=== PATIENT | female | born 1970 | race Caucasian/White ===

== ENCOUNTER 2016-10-04 09:04 | Outpatient (CLI) | payer BC, SELFPAY ==
[2016-10-04 12:26] LABS: #Basophils 0.1 thou/uL (0.0-0.2); #Eosinphils 0.3 thou/uL (0.0-0.7); #Monocytes 0.5 thou/uL (0.11-0.59); #Neutrophils 7.4 thou/uL (1.40-6.50); %Basophils 0.6 % (0.0-1.0); %Lymphocytes 19.8 % (21.0-51.0); %Monocytes 4.5 % (0.0-10.0); Hemoglobin 14.3 g/dL (12.0-16.0); Mean Corpuscular HGB CONC 31.5 g/dL (32.0-36.0); Mean Corpuscular Hemoglobin 26.4 pg (27.0-31.0); Mean Platelet Volume 6.8 fL (7.4-10.4); Platelet Count 283 thou/uL (130-400); RBC Distribution Width 12.4 % (11.5-14.5); Red Blood Cell (RBC) Count 5.42 mill/uL (4.20-5.40); White Blood Cell (WBC) Count 10.3 thou/uL (4.8-10.8)
[2016-10-04 12:33] LABS: Bilirubin Negative (Negative); Blood, Urine Negative (Negative); Clarity Clear (Clear); Glucose, Urine (Dipstick) Negative (Negative); Leukocyte Negative (Negative); Nitrite Negative (Negative); Protein, Urine (Dipstick) Trace mg/dL (Neg-Trace); Urobilinogen 0.2 mg/dL (0.2-1.0); pH, Urine 5.5 (5.0-9.0)
[2016-10-04 19:10] LABS: ALT (SGPT) 41 U/L (8-55); AST (SGOT) 32 U/L (5-34); Alkaline Phosphatase 71 U/L (40-150); Anion Gap 19 mmol/L (10-20); BUN (Urea Nitrogen) 11 mg/dL (7.0-18.7); Bilirubin, Total 0.4 mg/dL (0.2-1.2); Calc. Creatinine Clearance 0 mL/min (70-130); Calcium 9.3 mg/dL (7.8-10.44); Carbon Dioxide 23 mmol/L (22-29); Cardiac Risk 3.4 (Less than 4.5); Chloride 103 mmol/L (98-107); Cholesterol 191 mg/dL (< 200 Desired); Estimated GFR-MDRD 73; Globulin 3.1 g/dL (2.4-3.5); Glucose 106 mg/dL (70-105); HDL Cholesterol 56 mg/dL (>60 Neg Risk); LDL Cholesterol, Calculated 110 mg/dL; Potassium 4.1 mmol/L (3.5-5.1); Protein, Total 7.1 g/dL (6.0-8.3); Sodium 141 mmol/L (136-145); Triglycerides 123 mg/dL (Less than 150)
== END 2016-10-04 09:05 | disposition home or self-care (01) ==
LOC: NAVSJIPCSP 09:04
PROVIDERS: ATTEND Internal Medicine
DX: E78.5 Hyperlipidemia, unspecified (principal); I11.9 Hypertensive heart disease without heart failure
CPT/HCPCS: 36415; 80053; 80061; 81003; 85025

== ENCOUNTER 2017-01-19 09:44 | Outpatient (CLI) | payer BC ==
[2017-01-19 11:40] LABS: Cardiac Risk 3.1 (Less than 4.5)
== END 2017-01-19 09:45 | disposition home or self-care (01) ==
LOC: NAVSJIPCSP 09:44
PROVIDERS: ATTEND Internal Medicine
DX: E78.5 Hyperlipidemia, unspecified (principal); Z79.899 Other long term (current) drug therapy
CPT/HCPCS: 36415; 80061

== ENCOUNTER 2021-10-24 08:59 | Emergency (ER) | payer BC, SELFPAY ==
[2021-10-24] MEDS ORDERED: Ondansetron PF 4 MG/2 ML Vial ONE (09:19)
[2021-10-24 09:26] LABS: #Basophils 0.1 thou/uL (0.0-0.2); #Eosinphils 0.1 thou/uL (0.0-0.7); #Lymphocytes 1.2 thou/uL (1.20-3.40); #Monocytes 0.5 thou/uL (0.11-0.59); #Neutrophils 6.7 thou/uL (1.40-6.50); %Basophils 1.1 % (0.0-1.0); %Eosinophils 1.4 % (0.0-10.0); %Lymphocytes 13.5 % (21.0-51.0); %Monocytes 5.8 % (0.0-10.0); %Neutrophils 78.2 % (42.0-75.0); Hemoglobin 14.3 g/dL (12.0-16.0); Mean Corpuscular HGB CONC 30.1 g/dL (32.0-36.0); Mean Corpuscular Hemoglobin 26.2 pg (27.0-31.0); Mean Corpuscular Volume 87.1 fL (78.0-98.0); Mean Platelet Volume 7.6 fL (7.4-10.4); Platelet Count 280 thou/uL (130-400); RBC Distribution Width 13.2 % (11.5-14.5); Red Blood Cell (RBC) Count 5.44 mill/uL (4.20-5.40); White Blood Cell (WBC) Count 8.6 thou/uL (4.8-10.8)
[2021-10-24] MEDS ORDERED: Sodium Chloride 0.9% 1,000 ML ONE ×2 (09:43→10:34)
[2021-10-24 09:49] LABS: ALT (SGPT) 26 U/L (8-55); AST (SGOT) 23 U/L (5-34); Albumin 4.2 g/dL (3.5-5.0); Alkaline Phosphatase 73 U/L (40-110); Anion Gap 21 mmol/L (10-20); BUN (Urea Nitrogen) 12 mg/dL (9.8-20.1); Bilirubin, Total 0.5 mg/dL (0.2-1.2); Calc. Creatinine Clearance 0 mL/min (70-130); Calcium 9.8 mg/dL (7.8-10.44); Carbon Dioxide 20 mmol/L (22-29); Chloride 105 mmol/L (98-107); Globulin 3.8 g/dL (2.4-3.5); Glucose 114 mg/dL (70-105); Magnesium 1.8 mg/dL (1.6-2.6); Potassium 4.2 mmol/L (3.5-5.1); Sodium 142 mmol/L (136-145)
[2021-10-24 09:52] LABS: Bilirubin Negative (Negative); Blood, Urine Negative (Negative); Clarity Clear (Clear); Glucose, Urine (Dipstick) Negative (Negative); Ketone, Urine Negative (Negative); Leukocyte Negative (Negative); Nitrite Negative (Negative); Protein, Urine (Dipstick) Negative (Neg-Trace); Urobilinogen 0.2 mg/dL (Less than 2); pH, Urine 7.5 (5.0-9.0)
[2021-10-24] MEDS ORDERED: Ketorolac Tromethamine 30 MG/ML VIAL ONE (10:34)
[2021-10-24] MEDS ORDERED: predniSONE 20 MG TAB ONE (10:34)
[2021-10-24] MEDS ORDERED: Aspirin Chewable 81 MG TAB ONE (10:34)
[2021-10-24] MEDS ORDERED: Azithromycin 250 MG TAB ONE (10:34)
[2021-10-24 12:00] LABS: Troponin I Less than 0.010 ng/mL (< 0.028)
[2021-10-24 12:02] LABS: Lactic Acid 1.4 mmol/L (0.5-2.2)
[2021-10-24 20:22] LABS: SARS-CoV-2 PCR by NAA DETECTED (NotDetected)
== END 2021-10-24 12:26 | disposition home or self-care (01) ==
LOC: NAV ERS 08:59
DX: U07.1 COVID-19 (principal); J12.82 Pneumonia due to coronavirus disease 2019; J06.9 Acute upper respiratory infection, unspecified; J98.01 Acute bronchospasm; R07.81 Pleurodynia; I10 Essential (primary) hypertension; E78.5 Hyperlipidemia, unspecified; Z79.899 Other long term (current) drug therapy
CPT/HCPCS: 71045; 80053; 81003; 83605; 83735; 83880; 84484; 85025; 87081; 87430; 93005; 94640; 94760; 96361; 96374; 96375; J1885; J2405; J7050; J7512; J7620; U0003; U0005

== ENCOUNTER 2023-05-02 12:47 | Emergency (ER) | payer BC ==
[2023-05-02] MEDS ORDERED: Aspirin 325 MG TAB ONE (13:37)
[2023-05-02] MEDS ORDERED: Nitroglycerin 0.4 MG TAB 1 EACH ONE ×2 (13:37→17:41)
[2023-05-02 13:39] LABS: #Basophils 0.1 thou/uL (0.0-0.2); #Eosinphils 0.2 thou/uL (0.0-0.7); #Monocytes 0.5 thou/uL (0.11-0.59); #Neutrophils 5.8 thou/uL (1.40-6.50); %Basophils 1.1 % (0.0-1.0); %Eosinophils 1.9 % (0.0-10.0); %Lymphocytes 23.8 % (21.0-51.0); %Monocytes 5.9 % (0.0-10.0); %Neutrophils 67.3 % (42.0-75.0); Hematocrit 47.2 % (36.0-47.0); Hemoglobin 15.1 g/dL (12.0-16.0); Mean Corpuscular Hemoglobin 27.4 pg (27.0-31.0); Mean Corpuscular Volume 85.8 fl (78.0-98.0); Mean Platelet Volume 7.4 fL (7.4-10.4); Platelet Count 252 10x3/uL (130-400); RBC Distribution Width 12.3 % (11.5-14.5); White Blood Cell (WBC) Count 8.5 10x3/uL (4.8-10.8)
[2023-05-02 13:48] LABS: Troponin I Less than 0.010 ng/mL (< 0.028)
[2023-05-02 13:49] LABS: ALT (SGPT) 23 U/L (8-55); AST (SGOT) 21 U/L (5-34); Albumin 4.2 g/dL (3.5-5.0); Alkaline Phosphatase 68 U/L (40-110); Anion Gap 15 mmol/L (10-20); BUN (Urea Nitrogen) 12 mg/dL (9.8-20.1); Bilirubin, Total 0.5 mg/dL (0.2-1.2); Calc. Creatinine Clearance 0 mL/min (70-130); Calcium 9.2 mg/dL (7.8-10.44); Carbon Dioxide 20 mmol/L (22-29); Chloride 105 mmol/L (98-107); Estimated GFR 77; Globulin 3.4 g/dL (2.4-3.5); Glucose 94 mg/dL (70-105); Lipase 21 U/L (8-78); Magnesium 1.7 mg/dL (1.6-2.6); Protein, Total 7.6 g/dL (6.0-8.3); Sodium 136 mmol/L (136-145)
[2023-05-02 16:23] LABS: Troponin I 0.012 ng/mL (< 0.028)
== END 2023-05-02 17:26 | disposition home or self-care (01) ==
LOC: NAV ERS 12:47
DX: I16.0 Hypertensive urgency (principal); R07.9 Chest pain, unspecified; E78.5 Hyperlipidemia, unspecified; I10 Essential (primary) hypertension; Z79.899 Other long term (current) drug therapy
CPT/HCPCS: 36415; 71045; 80053; 83690; 83735; 83880; 84484; 85025; 93005; 94760

== ENCOUNTER 2024-04-09 20:04 | Emergency (ER) | payer BC ==
[2024-04-09] MEDS ORDERED: Ibuprofen 200 MG TAB ONE (20:37)
[2024-04-09] MEDS ORDERED: Acetaminophen 500 MG TAB ONE (20:37)
== END 2024-04-09 21:00 | disposition home or self-care (01) ==
LOC: NAV ERS 20:04
DX: S80.11XA Contusion of right lower leg, initial encounter (principal); S70.11XA Contusion of right thigh, initial encounter; I10 Essential (primary) hypertension; W19.XXXA Unspecified fall, initial encounter
CPT/HCPCS: 99283

== ENCOUNTER 2024-05-05 13:08 | Emergency (ER) | payer BC | END 2024-05-05 14:55 | disposition home or self-care (01) | LOC: NAV ERS 13:08 | DX: S62.631A Displaced fracture of distal phalanx of left index finger, initial encounter for closed fracture (principal); I10 Essential (primary) hypertension; E78.5 Hyperlipidemia, unspecified; Z79.899 Other long term (current) drug therapy; W22.8XXA Striking against or struck by other objects, initial encounter; Y92.000 Kitchen of unspecified non-institutional (private) residence as the place of occurrence of the external cause | CPT/HCPCS: 99283 ==

== ENCOUNTER 2024-06-04 14:33 | Emergency (ER) | payer BC ==
[2024-06-04] MEDS ORDERED: Ibuprofen 800 MG TAB ONE (14:54)
[2024-06-04] MEDS ORDERED: Bicillin LA 1.2 MILLION UNITS/2 ML SYRINGE ONE (15:30)
== END 2024-06-04 15:49 | disposition home or self-care (01) ==
LOC: NAV ERS 14:33
DX: J02.0 Streptococcal pharyngitis (principal); I10 Essential (primary) hypertension; Z79.899 Other long term (current) drug therapy
CPT/HCPCS: 87428; 87430; 96372; 99283; J0561

== ENCOUNTER 2025-01-16 07:44 | Emergency (ER) | payer BC ==
[2025-01-16] MEDS ORDERED: Ibuprofen 800 MG TAB ONE (08:20)
== END 2025-01-16 09:05 | disposition home or self-care (01) ==
LOC: NAV ERS 07:44
DX: U07.1 COVID-19 (principal); I10 Essential (primary) hypertension; Z79.899 Other long term (current) drug therapy
CPT/HCPCS: 87081; 87426; 87430; 99283